=== PATIENT | male | born 1955 | race Hispanic/Latino ===

== ENCOUNTER 2019-10-22 11:11 | Emergency (ER) | payer OTHER ==
--- NOTE | 2019-10-22 12:37 | RAD ---
3 VIEWS RIGHT SHOULDER: Date: 10/22/2019 HISTORY: Fall off horse, shoulder pain. FINDINGS: 3 views of the right shoulder show a fracture of the greater tuberosity of the proximal humerus. This does not extend all the way through the humeral neck. No dislocation is seen. IMPRESSION: Fracture of greater tuberosity of the humerus. POS: [facility]
--- NOTE | 2019-10-22 12:51 | CT ---
CT Thoracic Spine WO Con History: Pain. Bucked off horse. Comparison: None. Findings: Large sliding hiatal hernia. Adrenal glands are unremarkable. Pancreas is unremarkable. No posterior mediastinal adenopathy. The aortic contour is nonaneurysmal. No hydronephrosis. There is a nodule along the right major fissure axial image 40 measuring up to 11 mm in size. No pulmonary contusion is appreciated in the lung bases. Minimally displaced fractures of the seventh, eighth, ninth, 10th thoracic spine is processes. Nondis placed sixth spinous process fracture. Remainder of the spinous processes are intact. The thoracic transverse processes are intact. Visualized posterior ribs are intact. The vertebral body heights are maintained. No acute traumatic facet joint widening. Impression: 1. Nondisplaced spinous process fractures of T6-T10. 2. No acute vertebral body fracture. 3. Large sliding hiatal hernia. 4. Nodule in the right major fissure likely a partially calcified granuloma. Nonemergent follow-up ch est radiograph in 6 months recommended. Code CR: Dr. Lopez notified of findings via telephone at 12:00 PM. Transcribed Date/Time: 10/22/2019 12:51 PM
== END 2019-10-22 13:09 | disposition home or self-care (01) ==
LOC: ERS 11:11
DX: S42.251A Displaced fracture of greater tuberosity of right humerus, initial encounter for closed fracture (principal); S22.051A Stable burst fracture of T5-T6 vertebra, initial encounter for closed fracture; S22.069A Unspecified fracture of T7-T8 vertebra, initial encounter for closed fracture; S22.079A Unspecified fracture of T9-T10 vertebra, initial encounter for closed fracture; I10 Essential (primary) hypertension; E78.5 Hyperlipidemia, unspecified; Z79.82 Long term (current) use of aspirin; Z79.899 Other long term (current) drug therapy; V80.010A Animal-rider injured by fall from or being thrown from horse in noncollision accident, initial encounter
CPT/HCPCS: 72128

== ENCOUNTER 2020-05-23 15:52 | Outpatient (CLI) | payer MEDICARE, OTHER ==
--- NOTE | 2020-05-23 16:06 | RAD ---
Right hand 3 views HISTORY: Joint pain. FINDINGS: Mild joint space narrowing and subchondral sclerosis throughout the interphalangeal joints. Minimal osteophytosis. No acute fracture, dislocation, or aggressive osseous erosions. IMPRESSION : Very mild osteoarthritic changes. No acute osseous abnormalities are demonstrated.
== END 2020-05-23 15:53 | disposition home or self-care (01) ==
LOC: BICRAD 15:52
PROVIDERS: ATTEND Family Medicine
DX: M25.541 Pain in joints of right hand (principal); M19.041 Primary osteoarthritis, right hand

== ENCOUNTER 2021-03-01 06:55 | Outpatient (CLI) | payer MEDICARE, OTHER | END 2021-03-01 06:56 | disposition home or self-care (01) | LOC: BICULT 06:55 | PROVIDERS: ATTEND Family Medicine | DX: Z12.2 Encounter for screening for malignant neoplasm of respiratory organs (principal); Z13.6 Encounter for screening for cardiovascular disorders; J43.9 Emphysema, unspecified; K44.9 Diaphragmatic hernia without obstruction or gangrene; Z87.891 Personal history of nicotine dependence | CPT/HCPCS: 71271; 76775 ==

== ENCOUNTER 2022-03-01 15:43 | Outpatient (CLI) | payer MEDICARE, OTHER | END 2022-03-01 15:44 | disposition home or self-care (01) | LOC: BICCT 15:43 | PROVIDERS: ATTEND Family Medicine | DX: Z12.2 Encounter for screening for malignant neoplasm of respiratory organs (principal); Z87.891 Personal history of nicotine dependence; R91.8 Other nonspecific abnormal finding of lung field; K44.9 Diaphragmatic hernia without obstruction or gangrene | CPT/HCPCS: 71271 ==

== ENCOUNTER 2023-03-19 15:29 | Outpatient (CLI) | payer MEDICARE, OTHER | END 2023-03-19 15:30 | disposition home or self-care (01) | LOC: BICCT 15:29 | PROVIDERS: ATTEND Family Medicine | DX: Z12.2 Encounter for screening for malignant neoplasm of respiratory organs (principal); Z87.891 Personal history of nicotine dependence; K44.9 Diaphragmatic hernia without obstruction or gangrene | CPT/HCPCS: 71271 ==

== ENCOUNTER 2023-05-28 11:18 | Outpatient (CLI) | payer MEDICARE | END 2023-05-28 11:19 | disposition home or self-care (01) | LOC: SCSRAD 11:18 | PROVIDERS: ATTEND Family Medicine | DX: M17.0 Bilateral primary osteoarthritis of knee (principal) | CPT/HCPCS: 73565 ==

== ENCOUNTER 2024-03-17 18:11 | Emergency (ER) | payer MEDICARE, OTHER ==
[2024-03-17 19:09] LABS: #Basophils Less than 0.03 10x3/uL (0.0-0.2); %Basophils 0.2 % (0.0-1.0); %Eosinophils 0.7 % (0.0-10.0); %Lymphocytes 17.1 % (21.0-51.0); %Monocytes 7.3 % (0.0-10.0); %Neutrophils 74.2 % (42.0-75.0); Hematocrit 42.1 % (42.0-52.0); Hemoglobin 14.4 g/dL (14.0-18.0); Mean Corpuscular HGB CONC 34.2 g/dL (32.0-36.0); Mean Corpuscular Hemoglobin 30.8 pg (27.0-31.0); Mean Corpuscular Volume 90.1 fL (78.0-98.0); Mean Platelet Volume 10.4 fL (7.4-10.4); Platelet Count 203 10x3/uL (130-400); RBC Distribution Width 13.2 % (11.5-14.5); Red Blood Cell (RBC) Count 4.67 mill/uL (4.70-6.10)
[2024-03-17 19:23] LABS: Prothrombin Time 13.5 sec (12.0-14.7)
[2024-03-17 19:29] LABS: ALT (SGPT) 17 U/L (8-55); AST (SGOT) 20 U/L (5-34); Albumin 3.4 g/dL (3.4-4.8); Alkaline Phosphatase 75 U/L (40-110); Anion Gap 16 mmol/L (10-20); BUN (Urea Nitrogen) 15 mg/dL (8.4-25.7); Bilirubin, Total 0.8 mg/dL (0.2-1.2); Calc. Creatinine Clearance 0 mL/min (70-130); Calcium 8.9 mg/dL (7.8-10.44); Carbon Dioxide 19 mmol/L (23-31); Chloride 108 mmol/L (98-107); Estimated GFR 96; Globulin 3.7 g/dL (2.4-3.5); Glucose 105 mg/dL (80-115); Potassium 3.7 mmol/L (3.5-5.1); Protein, Total 7.1 g/dL (5.8-8.1); Sodium 139 mmol/L (136-145)
[2024-03-17] MEDS ORDERED: cefTRIAXone (ROCEPHIN) 2 GM VIAL ONE (19:47)
[2024-03-17] MEDS ORDERED: Acetaminophen 500 MG TAB ONE (20:20)
== END 2024-03-17 20:30 | disposition home or self-care (01) ==
LOC: ERS 18:11
DX: S80.812A Abrasion, left lower leg, initial encounter (principal); L03.116 Cellulitis of left lower limb; I10 Essential (primary) hypertension; E78.5 Hyperlipidemia, unspecified; W01.198A Fall on same level from slipping, tripping and stumbling with subsequent striking against other object, initial encounter; Z79.899 Other long term (current) drug therapy; R50.9 Fever, unspecified
CPT/HCPCS: 80053; 83605; 85025; 85610; 85730; 87040; 87635; 93971; 96374; 99284; J0696; 36415

== ENCOUNTER 2024-08-06 14:42 | Outpatient (CLI) | payer OTHER | END 2024-08-06 14:43 | disposition home or self-care (01) | LOC: BICCT 14:42 | PROVIDERS: ATTEND Family Medicine | DX: Z12.2 Encounter for screening for malignant neoplasm of respiratory organs (principal); Z87.891 Personal history of nicotine dependence; K44.9 Diaphragmatic hernia without obstruction or gangrene | CPT/HCPCS: 71271 ==

== ENCOUNTER 2024-08-17 13:35 | Outpatient (CLI) | payer OTHER | END 2024-08-17 13:36 | disposition home or self-care (01) | LOC: MRI 13:35 | PROVIDERS: ATTEND Family Medicine | DX: R90.89 Other abnormal findings on diagnostic imaging of central nervous system (principal); J32.0 Chronic maxillary sinusitis; G93.0 Cerebral cysts | CPT/HCPCS: 70553; 76376 ==